=== PATIENT | female | born 1965 | race Caucasian/White ===

== ENCOUNTER 2021-11-07 07:45 | Outpatient (CLI) | payer MEDICARE, MEDICAID, SELFPAY ==
[2021-11-07 08:36] LABS: Basophils Absolute Auto 0.1 K/mm3 (0.0-0.1); Basophils Percent Auto 1.3 % (0.2-1.2); Eosinophils Absolute Auto 0.3 K/mm3 (0-0.3); Hematocrit 40.1 % (37.0-47.0); Hemoglobin 13.1 g/dL (12.0-15.0); Immature Granulocyte Absolute 0.03 K/mm3 (0.00-0.031); Immature Granulocyte Percent A 0.4 % (0-0.5); Lymphocytes Absolute Auto 2.02 K/mm3 (0.9-3.2); Lymphocytes Percent Auto 28.6 % (18.3-44.2); Mean Corpuscular HGB Conc 32.7 g/dl (32-36); Mean Corpuscular Hemoglobin 29.4 pg (26-34); Mean Corpuscular Volume 89.9 fl (80-100); Mean Platelet Volume 8.7 fl (7.4-10.4); Monocytes Absolute Auto 0.6 K/mm3 (0.1-0.6); Monocytes Percent Auto 8.2 % (2.6-8.5); Neutrophils Absolute Auto 4.1 K/mm3 (1.3-6.7); Neutrophils Percent Auto 57.5 % (45.5-73.1); Platelet Count Result 349 k/mm3 (150-375); Red Blood Count 4.46 M/mm3 (4.2-5.4); Red Cell Distribution Width 15.3 % (11.5-14.5); White Blood Count 7.1 K/mm3 (4.5-10.0)
[2021-11-07 08:56] LABS: Alanine Aminotransferase 16 U/L (6-35); Albumin Level 3.9 g/dL (3.5-5.1); Alkaline Phosphatase 88 U/L (38-126); Anion Gap 7 mmol/L (8-16); Aspartate Amino Transferase 20 U/L (14-36); Bilirubin,Total < 0.1 mg/dL (0.2-1.3); Blood Urea Nitrogen 16 mg/dL (7-17); Calcium 8.7 mg/dL (8.4-10.2); Carbon Dioxide 28 mmol/L (22-30); Chloride 106 mmol/L (98-107); Cholesterol 262 mg/dL (0-200); Estimated Glomerular Filt Rate > 60; Glucose 96 mg/dL (65-110); HDL Direct 44 mg/dL; Potassium 3.7 mmol/L (3.4-5.0); Sodium 141 mmol/L (137-145); Triglycerides 491 mg/dL (<150)
[2021-11-07 09:07] LABS: LDL Cholesterol Direct 121 mg/dL
[2021-11-07 10:24] LABS: Vitamin D 25 Hydroxy 31.9 ng/mL
== END 2021-11-07 07:46 | disposition home or self-care (01) ==
PROVIDERS: PCP Internal Medicine; Visit Provider Nurse Practitioner
DX: E03.9 Hypothyroidism, unspecified (principal); E78.2 Mixed hyperlipidemia; E55.9 Vitamin D deficiency, unspecified; Z13.29 Encounter for screening for other suspected endocrine disorder
CPT/HCPCS: 36415; 80053; 80061; 82306; 84443; 85025

== ENCOUNTER 2022-06-23 17:54 | Emergency (ER) | payer OTHER, SELFPAY ==
[2022-06-23] VITALS (21 sets, daily range): BP systolic 103–135; BP diastolic 74–92; PULSE 66–84; RESP 12–23; O2SAT 60–100
--- NOTE | ~2022-06-23 | CT_ITS ---
EXAMINATION: CT brain wo con DATE: 06/23/2022 18:54 INDICATION: fall . TECHNIQUE: Computed tomography (CT) of the head was performed without intravenous contrast. The mA wa s adjusted according to patient size. Iterative reconstruction technique was employed. The dose-lengt h product was 832.33 mGy-cm. COMPARISON: MR brain 12/13/2015. FINDINGS: No acute intracranial hemorrhage or extra-axial fluid collection. No hydrocephalus, mass, or herniation. No acute ischemic infarct. Unremarkable dural venous sinus attenuation. No acute osseous abnormality. Right parietal scalp swelling and laceration. The aerated spaces are clear. IMPRESSION: No acute intracranial process. Reviewed, dictated and finalized at location K. LOADER
--- NOTE | ~2022-06-23 | CT_ITS ---
EXAMINATION: CT chst ab pel thor lum w DATE: 06/23/2022 19:03 INDICATION: Trauma, fall down 12 steps, pain with inspiration. TECHNIQUE: Computed tomography (CT) of the chest, abdomen, pelvis, thoracic spine and lumber spine wa s performed with 100 mL Omnipaque-350 intravenous contrast. Automated exposure control and iterative reconstruction technique were employed. The dose-length product was 570.18 mGy-cm. COMPARISON: None FINDINGS: CHEST: No thoracic aortic injury. No mediastinal hematoma. No pericardial effusion. No acute lung injury. Uncomplicated chronic appearing fat-containing right posterior diaphragmatic he rnia. No pleural effusion or pneumothorax. Bilateral breast augmentation. ABDOMEN/PELVIS: No solid organ injury. 10 mm right liver lobe cyst or hemangioma. 6 mm right adrenal hypodensity, lik missy adenoma. 8mm left lower pole exophytic hypodensity, too small to characterize but likely represen ts a cyst. No evidence of bowel or mesenteric injury. Distal esophageal and antral wall edema as can be seen wit h esophagitis/gastritis. Minimal scattered colonic diverticuli. No free fluid or free air. No retroperitoneal hematoma. Pelvic contents are atraumatic. Simple appearing bilateral ovarian cysts. MUSCULOSKELETAL (excluding spine): Mildly displaced right posterolateral fifth and sixth rib fractures. Incompletely visualized uncompli cated appearing left femoral intramedullary lanre. THORACIC SPINE: No fracture or traumatic malalignment of the thoracic spine. No severe central canal or neural forami nal narrowing. LUMBAR SPINE: No fracture or traumatic malalignment of the lumbar spine. No severe central canal or neural foramina l narrowing. IMPRESSION: Mildly displaced right posterior lateral fifth and sixth rib fractures. Otherwise, no acute process d etected in the chest, abdomen, pelvis, thoracic spine, or lumbar spine. Reviewed, dictated and finalized at location K. ECTIONAL AGENCY DIRECTOR IMPRESSION: Mildly displaced right posterior lateral fifth and sixth rib fractures. Otherwi se, no acute process detected in the chest, abdomen, pelvis, thoracic spine, or lumbar spine.
--- NOTE | ~2022-06-23 | CT_ITS ---
EXAMINATION: CT cervical spine wo con DATE: 06/23/2022 18:56 INDICATION: fall TECHNIQUE: Computed tomography (CT) of the cervical spine was performed without intravenous contrast. Automated exposure control and iterative reconstruction technique were employed. The dose-length pro duct was 306.79 mGy-cm. COMPARISON: MR C-spine 12/13/2015. FINDINGS: Vertebral Body Alignment: Intact. Stable trace anterolisthesis at C2-3, likely on a degenerative basi s. Craniocervical and atlantoaxial alignment: Moderate degenerative change. Alignment intact. Osseous structures/fracture: No evidence of a lytic or blastic process in the visualized spine. No e vidence of acute fracture. Uncomplicated appearing ACDF spanning C5-C7. Cervical soft tissues: The paraspinal soft tissues planes are maintained. Degenerative changes: Degenerative changes, without severe neural foraminal or central canal narrowin g. IMPRESSION: No acute fracture or traumatic malalignment in the cervical spine. Reviewed, dictated and finalized at location K. ER CARRIER
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
[2022-06-23 18:50] LABS: Estimated Glomerular Filt Rate > 60
[2022-06-23] MEDS: IBUPROFEN 400 MG TABLET 800 MG PO (19:45)
[2022-06-23] MEDS: ACETAMINOPHEN 500 MG TABLET 1000 MG PO (19:45)
== END 2022-06-23 21:24 | disposition home or self-care (01) ==
PROVIDERS: Emergency Provider Emergency Medicine; PCP Internal Medicine
DX: S22.41XA Multiple fractures of ribs, right side, initial encounter for closed fracture (principal); W10.9XXA Fall (on) (from) unspecified stairs and steps, initial encounter; I10 Essential (primary) hypertension; E78.5 Hyperlipidemia, unspecified; E03.9 Hypothyroidism, unspecified; Z72.0 Tobacco use
CPT/HCPCS: 70450; 71260; 72125; 72129; 72132; 74177; 99284; A9270; Q9967

== ENCOUNTER 2022-08-07 09:45 | Outpatient (CLI) | payer MEDICARE, MEDICAID, SELFPAY ==
--- NOTE | ~2022-08-07 | XR_ITS ---
Clinical Indication: Chest pain PA and lateral views of the chest: Comparison: 07/19/2015 Findings: Nipple shadow versus calcified granuloma noted at the right lung base. The lungs are otherw ise clear, without evidence of focal consolidation or pleural effusion. Cardiomediastinal silhouette is within normal limits. Cervical spine fixation hardware is stable from prior exam. There are fract ure deformities of the right third, fifth, sixth, and seventh ribs. Impression: Displaced fractures of the right third, fifth, and sixth ribs, age indeterminate. Correlate with any relevant clinical history. No significant pulmonary abnormality seen. Reviewed, dictated and finalized at [facility]. R MAINTENANCE SUPERVISOR Impression: Displaced fractures of the right third, fifth, and sixth ribs, age indeterminat e. Correlate with any relevant clinical history. No significant pulmonary abnormality seen.
== END 2022-08-07 09:46 | disposition home or self-care (01) ==
PROVIDERS: PCP Internal Medicine; Visit Provider Nurse Practitioner
DX: M54.6 Pain in thoracic spine (principal); S22.49XA Multiple fractures of ribs, unspecified side, initial encounter for closed fracture
CPT/HCPCS: 71046

== ENCOUNTER 2022-10-20 18:39 | Emergency (ER) | payer MEDICARE, MEDICAID, SELFPAY ==
--- NOTE | ~2022-10-20 | XR_ITS ---
EXAM: XR shoulder RT min 2V DATE: 10/20/2022 19:18 HISTORY: diffuse rt shoulder pain s/p fall . COMPARISON: X-ray chest 08/07/2022. FINDINGS: Normal mineralization. Multiple displaced right posterior lateral rib fractures with adjac ent pleural thickening, stable. AC joint widening, with elevation of the distal clavicle relative to the acromion. No lytic or blastic lesion. Glenohumeral joint space maintained. No erosion or perioste al change. IMPRESSION: Type II right AC joint injury. Multiple old displaced right posterior lateral rib fractur es. Reviewed, dictated and finalized at location K. IMPRESSION: Type II right AC joint injury. Multiple old displaced right posteri or lateral rib fractures.
--- NOTE | ~2022-10-20 | XR_ITS ---
EXAM: XR_CERV2-3V_CR DATE: 10/20/2022 19:42 HISTORY: pt wants cervical hardware checked . COMPARISON: 11/22/2015; CT C-spine 06/23/2022. FINDINGS: Craniocervical association and atlantoaxial joint are aligned. Stable grade 1 anterolisthe sis at C3-4. Moderate degenerative disc disease at C4-5. ACDF hardware spanning C5-C7, without hardwa re fracture or perihardware lucency. Interbody bone plugs in stable and good position. Multilevel fac et arthropathy. IMPRESSION: C5-C7 ACDF, no radiographic evidence of hardware related complication. No acute fracture or traumatic malalignment in the cervical spine. Reviewed, dictated and finalized at location K. IMPRESSION: C5-C7 ACDF, no radiographic evidence of hardware related complicati on. No acute fracture or traumatic malalignment in the cervical spine.
[2022-10-20 18:54] VITALS: BP 172/88; PULSE 72; RESP 16; TEMP 37.1; O2SAT 97
[2022-10-20 18:59] VITALS: BP 172/88; PULSE 72; RESP 16; TEMP 37.1; O2SAT 97
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
== END 2022-10-20 20:20 | disposition home or self-care (01) ==
PROVIDERS: Emergency Provider Nurse Practitioner; PCP Nurse Practitioner
DX: S49.91XA Unspecified injury of right shoulder and upper arm, initial encounter (principal); W06.XXXA Fall from bed, initial encounter; I10 Essential (primary) hypertension; E78.5 Hyperlipidemia, unspecified; E03.9 Hypothyroidism, unspecified; F41.8 Other specified anxiety disorders; Z72.0 Tobacco use; F12.90 Cannabis use, unspecified, uncomplicated
CPT/HCPCS: 72040; 73030; 99214; G0463

== ENCOUNTER 2023-01-29 08:00 | Outpatient (RCR) | payer MEDICARE, MEDICAID, SELFPAY ==
--- NOTE | 2023-01-11 14:26 | PCPTNOTE ---
Patient called & cancelled scheduled initial evaluation this date. She has been rescheduled.
--- NOTE | 2023-01-13 14:26 | OPREHPOC ---
Outpatient Therapy Plan of Care This is a Multidisciplinary Plan of Care that may contain components documented by all disciplines (PT, OT, and ST.) PT Problem 1 PT Problem #1 Knowledge Deficit PT Goal 1 Goal Pt to be IND with issued HEP Target Visit 8 PT Problem 2 PT Problem #2 Pain PT Goal 1 Goal Pt to report R shoulder pain no greater than 3/10 in the last week Target Visit 8 PT Goal 2 Goal Pt to report 75% improvement in overall symptoms Target Visit 8 PT Problem 3 PT Problem #3 Pain PT Goal 1 Goal Pt to report no sharp pain with overhead motion Target Visit 8 PT Goal 2 Goal Pt to report no increased in pain with manual resistance Target Visit 8 PT Problem 4 PT Problem #4 Impaired Strength PT Goal 1 Goal Pt to be able to lift 10lb from ground level and 5lb overhead Target Visit 8
--- NOTE | 2023-01-13 14:26 | PTOPEVAL1 ---
Assessment and note entered by Lena Farrell, PT, DPT Evaluation Information Assessment Status Evaluation Diagnosis R shoulder pain Subjective Information Pt states she went to urgent care in September of this year with shoulder pain after a traumatic fall at home. Imaging showed a Janel 2 AC joint separation . Per urgent care she was supposed to be referring to ortho but she did not follow up. Pt states her pain from September initial went away but has now come back. She feels pain when she lifts anything using her R arm. She states about 10% of the time when she is getting dressed or doing her hair she will get a really sharp pain. She states the most recent time was 2 days ago. Pt has a history of cervical fusions. Reported Pain Level Pain Score 3: Self Report Assessment PT Clinical Summary Beena presents to therapy today for her initial evaluation with a diagnosis of a R shoulder injury following a traumatic R AC joint dislocation. Today she demonstrates good ROM and fair strength with decreased functional stability. She reports intermittent sharp pains with motions, particularity overhead. Skilled physical therapy services are indicated to improve shoulder stability, manage pain, and to return to PLOF. Plan of Care Interventions Electrical Stimulation,Hot Pack/Cold Pack,Manual Therapy,Neuro Re-education,Patient/Caregiver Educati,Therapeutic Activities,Therapeutic Exercise PT Services Indicated Yes Treatment Frequency and 2x/wk for 8 visits Duration These treatments will address the objective and functional deficits as defined above. The patient will be advanced safely and appropriately in order for the patient to progress towards his/her prior level of function. Additional exercises will be introduced and as well as a comprehensive home exercise program upon discharge, if needed, ?to ensure carryover of functional gains achieved in the clinic. This treatment plan has been reviewed and agreement upon by the patient.
--- NOTE | 2023-01-20 12:53 | PCPTNOTE ---
Pt cancelled due to needing a mental health day.
--- NOTE | 2023-01-22 08:24 | PCPTNOTE ---
Pt NS appt today. Called pt and she stated she forgot, pt was reminded of her next appt day and time.
--- NOTE | 2023-01-25 11:14 | PCPTNOTE ---
Pt showed for her 11:00 appt early and by 11:00 she left in tears stating she just couldn't stay. She rescheduled for tomorrow.
--- NOTE | 2023-01-25 11:50 | PCPTNOTE ---
Patient called & cancelled scheduled appointment this date due. She has been rescheduled for tomorrow.
--- NOTE | 2023-01-27 09:53 | PCPTNOTE ---
Patient called to cancel this date due to conflicting appointment.
--- NOTE | 2023-02-02 11:58 | PCPTNOTE ---
Patient no showed and no call this date. Unable to leave voicemail.
--- NOTE | 2023-02-04 09:06 | PCPTNOTE ---
Patient no showed to appointment this date. Unable to leave a voicemail. This is patient's third no show and will be discharge per attendance policy.
--- NOTE | 2023-02-04 13:27 | PTOPDC ---
Assessment and note entered by Lena Farrell, PT, DPT Evaluation Information Assessment Status Discharge - Pt Not Present Diagnosis R shoulder pain Subjective Information Pt did not show up to her scheduled appointment this date. In her current POC, since 01/12/22, she has cancelled 2 times and no showed 3 times. Assessment PT Clinical Summary Beena completed 5 visits of skilled therapy from to 02/04/23. She will be discharged at this time per the attendance policy. If she needs additional therapy she will need a new order. Unable to leave voicemail to notify her of her discharge.
== END 2023-02-04 15:46 | disposition home or self-care (01) ==
LOC: ANHGOSHPT 08:00
PROVIDERS: PCP Internal Medicine; Visit Provider Nurse Practitioner
DX: S49.90XA Unspecified injury of shoulder and upper arm, unspecified arm, initial encounter (principal)
CPT/HCPCS: 97110; 97140; 97161; 97530; 99199

== ENCOUNTER 2023-05-07 07:51 | Outpatient (CLI) | payer MEDICARE, MEDICAID, SELFPAY ==
[2023-05-07 08:36] LABS: Basophils Absolute Auto 0.1 K/mm3 (0.0-0.1); Basophils Percent Auto 1.2 % (0.2-1.2); Eosinophils Absolute Auto 0.3 K/mm3 (0-0.3); Eosinophils Percent Auto 3.5 % (0-4.4); Hemoglobin 12.5 g/dL (12.0-15.0); Immature Granulocyte Absolute 0.05 K/mm3 (0.00-0.031); Immature Granulocyte Percent A 0.6 % (0-0.5); Lymphocytes Absolute Auto 2.24 K/mm3 (0.9-3.2); Lymphocytes Percent Auto 26.7 % (18.3-44.2); Mean Corpuscular HGB Conc 32.9 g/dl (32-36); Mean Corpuscular Volume 91.3 fl (80-100); Mean Platelet Volume 8.2 fl (7.4-10.4); Monocytes Absolute Auto 0.7 K/mm3 (0.1-0.6); Monocytes Percent Auto 8.1 % (2.6-8.5); Neutrophils Percent Auto 59.9 % (45.5-73.1); Platelet Count Result 355 k/mm3 (150-375); Red Blood Count 4.16 M/mm3 (4.2-5.4); White Blood Count 8.4 K/mm3 (4.5-10.0)
[2023-05-07 08:55] LABS: Alanine Aminotransferase 18 U/L (6-35); Albumin Level 3.9 g/dL (3.5-5.1); Alkaline Phosphatase 87 U/L (38-126); Anion Gap 5 mmol/L (8-16); Aspartate Amino Transferase 26 U/L (14-36); Bilirubin,Total 0.3 mg/dL (0.2-1.3); Blood Urea Nitrogen 15 mg/dL (7-17); Calcium 9.1 mg/dL (8.4-10.2); Carbon Dioxide 29 mmol/L (22-30); Chloride 108 mmol/L (98-107); Cholesterol 245 mg/dL (0-200); Estimated Glomerular Filt Rate > 60; Glucose 88 mg/dL (65-110); HDL Direct 45 mg/dL; Potassium 3.9 mmol/L (3.4-5.0); Sodium 142 mmol/L (137-145); Triglycerides 272 mg/dL (<150)
[2023-05-07 09:06] LABS: LDL Cholesterol Direct 123 mg/dL
[2023-05-07 10:06] LABS: Vitamin D 25 Hydroxy 31.2 ng/mL
== END 2023-05-07 07:52 | disposition home or self-care (01) ==
PROVIDERS: PCP Internal Medicine; Visit Provider Nurse Practitioner
DX: E78.5 Hyperlipidemia, unspecified (principal); E55.9 Vitamin D deficiency, unspecified; E03.9 Hypothyroidism, unspecified; Z13.29 Encounter for screening for other suspected endocrine disorder
CPT/HCPCS: 36415; 80053; 80061; 82306; 84443; 85025

== ENCOUNTER 2023-08-10 13:49 | Outpatient (CLI) | payer MEDICARE, MEDICAID, SELFPAY ==
--- NOTE | ~2023-08-10 | MR_ITS ---
EXAMINATION: MR brain/brain stem wo/w con DATE: 08/10/2023 14:43 INDICATION: Other visual disturbances. Headache. TECHNIQUE: Magnetic resonance imaging (MRI) of the brain and brainstem was performed without and with 13 mL MultiHance intravenous contrast. COMPARISON: Brain MRI 12/13/2015, head CT 06/23/2022 FINDINGS: There are a few foci of nonspecific increased T2-weighted signal intensity in the cerebral white matter, which is within normal limits for the patient's age. There is no intracranial hemorrhag e, acute infarction, or abnormal intracranial mass lesion. The ventricles are normal in size. The orb its are normal. There is mild mucosal thickening in the ethmoid sinuses. The mastoid air cells are no rmal. IMPRESSION: 1. Normal brain. Reviewed, dictated and finalized at location A. IMPRESSION: 1. Normal brain.
== END 2023-08-10 13:50 | disposition home or self-care (01) ==
LOC: ANHIMG 13:52
PROVIDERS: PCP Internal Medicine; Visit Provider Nurse Practitioner
DX: R51.9 Headache, unspecified (principal); H53.8 Other visual disturbances
CPT/HCPCS: 70553; A9577

== ENCOUNTER 2025-03-15 15:29 | Outpatient (CLI) | payer MEDICARE, MEDICAID, SELFPAY ==
--- OUTSIDE RECORDS SUMMARY | 2024-08-31 06:00 | XMS_ITS ---
Author Organization [facility] Address [address] [place] [address] Care Team Providers Care Warehouse Engineer Name Role Phone Sarahi Oro Primary Care Provider Mary Bustamante Unavailable REASON FOR VISIT therapy Encounters Encounter Location Date Provider Diagnosis [facility] [address] [address] 08/31/2024 Mary Bustamante Plan Of Treatment No Information Progress Notes * Beckie AYALACharlineB:1965 ( 59 yo F)Acc No.[id number]:08/31/2024 UNLOCKED PROGRESS NOTE Patient: Beena DAWKINS Provider: Pool Bustamante :1965 A ge:58 Y S ex:Female Date:08/31/2024 Address[address] [facility] Pcp:Sarahi Oro Subjective: * Chief Complaints: * 1 . Therapy. * Medical History: Objective: * Vitals: Assessment: Plan: * Treatment: * * Electronic signature of Kristal Bustamante on 03/15/2025 at 05:32 PM CDT Sign off status: Pending * Provider: Pool Bustamante Date: 0 08/31/2024 Generated for Printi ng/Faxing/eTransmitting on: 1 05:32 PM CDT
--- OUTSIDE RECORDS SUMMARY | 2024-09-28 06:00 | XMS_ITS ---
Author Organization [facility] Address [address] [place] [address] Care Team Providers Care Sexual Abuse Counsellor Name Role Phone Sarahi Oro Primary Care Provider Mary Bustamante Unavailable REASON FOR VISIT herapy Encounters Encounter Location Date Provider Diagnosis [facility] [address] [address] 09/28/2024 Mary Bustamante Plan Of Treatment No Information Progress Notes * Beckie AYALAaDOB:1965 ( 59 yo F)Acc No.[id number]:09/28/2024 UNLOCKED PROGRESS NOTE Patient: Beena DAWKINS Provider: Pool Bustamante :1965 A ge:58 Y S ex:Female Date:09/28/2024 [address] [facility] Pcp:Sarahi Oro Subjective: * Chief Complaints: * 1 . Herapy. * Medical History: Objective: * Vitals: Assessment: Plan: * Treatment: * * Electronic signature of Kristal Bustamante on 03/15/2025 at 05:32 PM CDT Sign off status: Pending * Provider: Pool Bustamante Date: 0 09/28/2024 Generated for Printi ng/Faxing/eTransmitting on: 1 05:32 PM CDT
--- NOTE | ~2025-03-15 | CT_ITS ---
EXAMINATION:CT lung screening DATE: 03/15/2025 15:46 INDICATION: Personal history of nicotine dependence. TECHNIQUE: Computed tomography (CT) of the chest was performed without intravenous contrast. Automated exposure control and iterative reconstruction technique were employed. The dose-length product (DLP) was 120.70 mGy-cm. COMPARISON: Chest CT 06/23/2022 FINDINGS: The lungs demonstrate mild atelectasis. There is a stable 4 mm nodule in right lower lobe. No pleural effusion. The heart size is normal. There are coronary artery calcifications. No pericardial effusion. There are gallstones in the gallbladder. Breast implants are noted. There are old right rib fractures. There are changes of anterior fusion procedure in cervical spine. There is severe thoracic spondylosis. IMPRESSION: 1. Lung-RADS category 2: Benign appearance or behavior. Continue annual screening with noncontrast low-dose chest CT in 12 months. Reviewed, dictated and finalized at location E. IMPRESSION: 1. Lung-RADS category 2: Benign appearance or behavior. Continue annual screeni ng with noncontrast low-dose chest CT in 12 months.
--- OUTSIDE RECORDS SUMMARY | 2025-03-15 17:32 | XMS_ITS | Clinical Summary ---
Author Organization [facility] Address [address] [place] [address] Care Team Providers Care Wellness Assistant Name Role Phone Jeronimo Gamble DO Primary Care Provider Source Comments [facility],non-owned Affiliates and Associated Physician Practices is amultiple site organization consisting of ambulatory clinics and hospital sitesin [place], [place]. This disclosure is being madepursuant to the Care Everywhere program and may not contain all information available regarding this patient. Last updated 18.[facility] Allergies Active Allergy Reactions Criticality Noted Date Comments Codeine 03/08/2017 hives Phenylephrine-Guaifenesin 03/08/2017 hives Medications * Be aware that medications may not be up to date on this document. Alwaysverify current medications with the patient. Venlafaxine HCl (VENLAFAXINE ER 24HR) 150 MG tablet Take 150 mg by mouth daily with breakfast Active amLODIPine (NORVASC) 5 MG tablet Take 5 mg by mouth once daily Active levothyroxine (SYNTHROID) 112 MCG tablet Take 112 mcg by mouth daily before breakfast Active ibuprofen (MOTRIN) 800 MG tablet Take 800 mg by mouth 3 times daily Active losartan - hydroCHLOROthiazide (HYZAAR) 50-12.5 MG tablet 09/04/19 19 Active Family History Medical History Relation Name Comments CVA Father Cardiomyopathy Father Diabetes - Type 2 Father Diabetes - Type 2 Mother Relation Name Status Comments Father Mother Social History Tobacco Use Types Packs/Day Years Used Date Smoking Tobacco: Every Day Cigarettes Smokeless Tobacco: Never Tobacco Cessation:Ready to Q uit: Yes; Counseling Given: Yes Comments:Vapor and cigarettes 2 a day Alcohol Use Standard Drinks/Week Comments No 0 (1 standard drink = 0.6 oz pur e alcohol) Comments No Sex and Gender Information Value Date Recorded Sex Assigned at Not on file Legal Sex Female 6:21 AM [employer]ORSEBACK [employer]ING [employer]STRU[employer] Gender Identity Not on file Sexual Orientation Not on file Last Filed Vital Signs Vital Sign Reading Time Taken Comments Blood Pressure 110/80 09/27/2018 8:53 AM CDT Pulse 84 09/27/2018 8:53 AM CDT Temperature 37 C (98.6 F) 09/27/2018 8:53 AM CDT Respiratory Rate 18 11/20/2016 8:08 PM CDT Oxygen Saturation 98% 11/20/2016 2:49 PM CDT Inhaled Oxygen Concentration - - Weight 75.3 kg (166 lb) 09/27/2018 8:53 AM CDT Height 163.8 cm (5' 4.5) 09/27/2018 8:53 AM CDT Body Mass Index 28.05 09/27/2018 8:53 AM CDT Plan of Treatment Health Maintenance Due Date Last Done Comments COLOGUARD (AGES 45-75) - COL ON CA SCREENING 1964 COLON MONITORING 1964 COLONOSCOPY - COLON CA SCREENING 1964 CT COLONOGRAPHY - COLON CA SCREENING 1964 Colorectal Cancer Screening 1964 FIT - COLON CA SCREENING 1964 FLEX SIG - COLON CA SCREENING 1964 LIPID TESTING 1964 MAMMOGRAM 1964 HIV SCREENING 12/03/1979 DTAP/TDAP/TD VACCINES (1 - Tdap) 12/03/1983 PNEUMOCOCCAL VACCINE 50+ (1 of 1 - PCV) 2014 ZOSTER VACCINE (1 of 2) 2014 DEPRESSION SCREENING 05/31/2024 COVID-19 VACCINE (1 - 2023-2 5 season) 2025 INFLUENZA VACCINE (#1) 2025 Respiratory Syncytial Virus (RSV) Vaccine Pt: or over 60 yrs (1 - 1-dose 75+ series) 12/03/2039 HEPATITIS C SCREENING Completed 09/30/2018 HEPATITIS B VACCINE Aged Out No longe r eligible based on patient's age to complete this topic HIB VACCINE Aged Out No longer eligi ble based on patient's age to complete this topic HPV VACCINE Aged Out No longer eligi ble based on patient's age to complete this topic MENINGOCOCCAL (Group B) VACC INE SHARED DECISION-MAKING Aged Out No longer eligibl e based on patient's age to complete this topic MENINGOCOCCAL GROUPS A/C/Y/W VACCINE Aged Out No longer eligible b ased on patient's age to complete this topic Procedures Procedure Name Priority Date/Time Associated Diagnosis Comments HEPATITIS C AB W/RFLX TO HCV RNA QN PCR Routine 09/30/2018 7:33 AM CDT Positive YOKASTA (antinuclear antibody) Arthralgia, unspecified joint Myalgia Fatigue, unspecified type from Last 3 Months or Most Recently Relevant to Health Maintenance Results * HEPATITIS C AB W/RFLX TO HCV RNA QN PCR (09/30/2018 7:33 AM CDT) Hepatitis C Antibody NON-REACTI VE NON-REACT H[facility] Signal to Cut-Off 0.01 <1.00 [facility] Comment: HCV antibody was non-reactive. There is no laboratory evidence of HCV infection. In most cases, no further action is required. However, if recent HCV exposure is suspected, a test for HCV RNA (test code 64869) is suggested. For additional information please refer to http://education.[place]/faq/UWQ15z5 (This link is being provided for informational/ educational purposes only.) Test Performed at: [facility] [address] [place] [address] ASHISH SAXENA DO,MPH Blood BLOOD SPECIMEN / Unknown 09/30/2018 7:33 AM CDT 09/30/2018 7:38 AM CDT Adolfo Oleary MD LAB - CHEMISTRY ORDERABLES F inal Result [facility] [address] [place] [address] from Last 3 Months or Most Recently Relevant to Health Maintenance Insurance MEDICAID - [place] [facility] MEDICA[facility] - [facility] Care Teams Wellness Assistant Relationship Specialty Start Date End Date Jeronimo Gamble DO PCP - General 03/01/18
--- OUTSIDE RECORDS SUMMARY | 2025-03-15 17:32 | XMS_ITS | Clinical Summary ---
Author Organization [facility] Address [address] [place] [address] Phone Care Team Providers Care Banana Ripening Room Supervisor Name Role Phone Jeronimo Gamble DO Primary Care Provider Surya Owens MD Unavailable [phone] Allergies Active Allergy Reactions Criticality Noted Date Comments Ami-Luis Alberto Hives 08/07/2013 Morphine And Codeine Hives 08/07/2013 Medications traZODone 50 MG PO TABSIndications :Anxiety Take 1 Tab by mouth nightly. 90 Tab 3 4 Active clonazePAM (KLONOPIN) 2 MG PO TABSIndications :Anxiety Take 1 Tab by mouth 2 times daily. 180 Tab 5 4 Active gemfibrozil (LOPID) 600 MG PO TABS Take 1 Tab by mouth 2 times daily. 180 Tab 3 4 Active CYCLOBENZAPRINE 5 MG PO TABS TAKE 1 TABLET 3 TIMES A DAY 90 Tab 2 4 Active oxyCODONE-aceta minophen (PERCOCET) 5-325 MG PO TABS Take 1 Tab by mouth every 8 hours as needed for Pain. 90 Tab 0 4 Active LEVOTHYROXINE 100 MCG PO TABS TAKE 1 TABLET BY MOUTH EVERY DAY 30 Tab 3 5 Active VENLAFAXINE 150 MG PO CAP-SR-24HR TAKE ONE CAPSULE BY MOUTH EVERY DAY 90 Cap 0 5 Active lisinopril-hydr ochlorothiazide (PRINZIDE, ZESTORETIC) 20-25 MG Tablet TAKE 1 TABLET BY MOUTH EVERY DAY 90 Tab 0 5 Active amLODIPine (NORVASC) 5 MG Tablet Take 1 Tab by mouth daily. 90 Tab 0 5 Active QUEtiapine (SEROquel) 100 MG Tablet take 1 tablet by mouth every day at bedtime for 30 days 5 Active Varenicline Tartrate, Starter, 0.5 MG X 11 & 1 MG X 42 Tablet Therapy Pack USE DIRECTED PER PACKAGE DIRECTIONS 5 Active losartan-hydroc hlorothiazide (HYZAAR) 50-12.5 MG Tablet Take 1 Tablet by mouth daily. 4 Active FLUoxetine (PROzac) 20 MG Capsule take 1 capsule by mouth every day for 30 days 5 Active FLUoxetine (PROZAC) 40 MG Capsule 1 CAPSULE WITH 20 MG (FOR 60 MG TOTAL) ORALLY ONCE A DAY 30 DAYS 5 Active Active Problems Problem Noted Date Diagnosed Date Knee pain 08/14/2013 Anxiety 08/14/2013 HTN (hypertension) 08/14/2013 Social History Tobacco Use Types Packs/Day Years Used Date Smoking Tobacco: Every Day Cigarettes Smokeless Tobacco: Never Tobacco Cessation:Ready to Q uit: No; Counseling Given: Yes Alcohol Use Standard Drinks/Week Comments No 0 (1 standard drink = 0.6 oz pur e alcohol) Comments No Sex and Gender Information Value Date Recorded Sex Assigned at Not on file Legal Sex Female 10:15 AM CDT Gender Identity Not on file Sexual Orientation Not on file Last Filed Vital Signs Vital Sign Reading Time Taken Comments Blood Pressure 128/60 02/23/2014 4:32 PM CDT Pulse 78 02/23/2014 4:32 PM CDT Temperature 36.8 C (98.3 F) 02/23/2014 4:32 PM CDT Respiratory Rate 16 02/23/2014 4:32 PM CDT Oxygen Saturation 98% 08/30/2013 10:23 AM CDT Inhaled Oxygen Concentration - - Weight 74.4 kg (164 lb) 02/23/2014 4:32 PM CDT Height 165.1 cm (5' 5) 02/23/2014 4:32 PM CDT Body Mass Index 27.29 02/23/2014 4:32 PM CDT Plan of Treatment Health Maintenance Due Date Last Done Comments Hepatitis C Virus (HCV) Screening 1964 Mammogram 1964 TdaP Immunization 1964 Pap Smear 1985 Cervical Cancer Screening (CCS) 1994 HPV/Cotest 1994 Cologuard 2009 Colonoscopy 2009 Colorectal Cancer Screening 2009 Immunochemical Fecal Occult Blood 2009 Pneumococcal Immunization (5 0+ years) (1 of 1 - PCV) 2014 Zoster Immunization (1 of 2) 2014 Welcome to Medicare (IPPE) [id number] 05/31/2024 Influenza Immunization (#1) 2025 SARS-COV-2 Immunization (1 - 2023-25 season) 2025 Respiratory Syncytial Virus (RSV) Immunization (Adult) (1 - 1-dose 75+ series) 12/03/2039 Hepatitis B Immunization Aged Out No longer eligible based on patient's age to complete this topic Human Papillomavirus (HPV) Immunization Aged Out No longer eligible b ased on patient's age to complete this topic Meningococcal Immunization (ACWY) Aged Out No longer eligible based on patient's age to complete this topic Rotavirus Immunization Aged Out No lo nger eligible based on patient's age to complete this topic Insurance MEDICARE C [employer] MED[place]ID [place] Care Teams Banana Ripening Room Supervisor Relationship Specialty Start Date End Date Jeronimo Gamble DO [address] [facility] [place] [place] [address] PCP - General Internal Medicine 07/06/24 Surya Owens MD [address] [place] [address] Consulting Physician Neurology 11/13/24
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
--- OUTSIDE RECORDS SUMMARY | 2025-03-15 17:32 | XMS_ITS | Patient Health Record ---
Author Organization [facility] Address [address] [facility] [address] [place] [address] Care Team Providers Care Elevator Troubleshooter Name Role Phone Bunny Moreno Unavailable [phone] Reason For Referral No Information Medications Medication SIG (Take, Route, Frequency, Duration) Notes Start Date End Date Status Lisinopril-hydroCHLOROthiaz nick 20-25 MG Tablet Oral Active traZODone HCl 50 MG Tablet Oral Active Gemfibrozil 600 MG Tablet Oral Active Venlafaxine HCl ER 150 MG Capsule Extended Release 24 Hour Oral Active amLODIPine Besylate 5 MG Tablet Oral Active Plan Of Treatment No Information
== END 2025-03-15 15:30 | disposition home or self-care (01) ==
PROVIDERS: PCP Internal Medicine; Visit Provider Nurse Practitioner
DX: Z12.2 Encounter for screening for malignant neoplasm of respiratory organs (principal); Z87.891 Personal history of nicotine dependence
CPT/HCPCS: 71271